=== PATIENT | male | born 1960 | race Caucasian/White ===

== ENCOUNTER 2016-10-31 16:31 | Emergency (ER) | payer OTHER ==
[2016-10-31 16:45] VITALS: RESP 16; O2SAT 95
--- NOTE | 2016-10-31 17:12 | EDPHY ---
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 He complains of increasing pain and swelling to the dorsum of his left foot with limited range of motion to his toes secondary to swelling. He has been treating his injury with Ibuprofen, rest, elevation, and ice without significant improvement to his complaints. He denies any additional injuries. He has a remote history of left ankle fracture and left toe fracture. REVIEW OF SYSTEMS: A ten point review of systems was performed and is negative with the exception of the items mentioned in the HPI. Source: Patient Exam Limitations: No limitations - Medical/Surgical History PMH: 1. Chronic neck pain (oxycodone PRN) 2. Hip pain (oxycodone PRN) 3. Hypertension 4. Left ankle fracture 5. Left toe fracture Hx Asthma: No Hx Chronic Respiratory Disease: No Hx Diabetes: No Hx Cardiac Disease: No Hx Renal Disease: No Hx Cirrhosis: No Hx Alcoholism: No Hx HIV/AIDS: No Hx Splenectomy or Spleen Trauma: No Other PMH: fx collarbone,fx ribs,knee surgery. kidney stones, lipsotrypsy, bowel obstruction. 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 at bedside. Works as cabinetmaker. - Physical Exam Exam: General Appearance: Alert. Vital signs reviewed. Focused exam was performed. BP 146/103. Respiratory: Lungs are clear to auscultation; no wheezes, rales, or rhonchi. Cardiovascular: Regular rate and rhythm; no murmur, rub, or gallop. Gastrointestinal: Abdomen is soft and nontender. Skin: Warm and dry, no rashes on exposed skin, normal color. No bruising. Extremities: Tenderness to the distal first metatarsal, tenderness over the fourth and fifth metatarsals. No significant swelling or warmth. Able to flex/ ext left ankle, wiggle left toes. Pulses: 2+ dorsalis pedis pulses on the left. Neurological: Alert and oriented. Moving all four extremities easily and equally. Sensation intact over left foot. Psychiatric: Normal affect. Constitutional: Initial Vital Signs Temperature (C) 37.2 C 10/31/16 16:41 Heart Rate 98 10/31/16 16:41 Respiratory Rate 16 10/31/16 16:41 Blood Pressure 146/103 H 10/31/16 16:41 O2 Sat (%) 95 10/31/16 16:41 O2 Delivery Mode Room Air Allergies/Adverse Reactions: No Known Allergies Allergy (Verified 10/31/16 16:40) Home Medications: Medication Instructions Recorded Lisinopril [Zestril 10 mg (*)] 08/30/14 Pravastatin Sodium [Pravachol] 08/30/14 Bp Med 10/31/16 Medical Decision Making - Diagnostics Imaging Results: Imaging Impressions Foot X-Ray 10/31/16 16:54 Impression: 1. No acute fracture identified. 2. Probable old fracture of the shaft of the proximal phalanx of the fourth toe. 3. Additional findings as above. Findings discussed with Deanna Hodges today at 1725 hours. ED Course/Re-evaluation: 56-year-old male presents with left foot injury secondary to attempting to kick a piece of wood off of his desk at 1000. He has no additional injuries. He has tenderness over the first, fourth, and fifth metatarsal on exam. Sensation is in tact. Will proceed with x-ray of the left foot. 2 tabs PO Percocet administered for pain. 1726: X-ray results reported to me by Dr. Riddle, radiologist.. I discussed imaging results with the patient. He will be given a post-op shoe to wear while his pain persists and an orthopedic referral for follow-up if needed. He will be discharged home in good condition. He has a set of crutches that he borrowed. He will continue with ice and elevation. He has oxycodone that he uses for his chronic neck pain and he will keep continue this and all of his prescribed medications. He was hypertensive in the emergency department. He has a history of hypertension and is compliant with his medications. Will follow up with his primary care provider. Differential Diagnosis: I considered a differential diagnosis that includes but is not limited to fracture, dislocation, sprain, strain, abrasion, and contusion. - Data Points Medications Given: Discontinued Medications Oxycodone/Acetaminophen (Percocet 5/325) 2 tab PO EDNOW ONE Stop: 10/31/16 17:23 Last Admin: 10/31/16 17:26 Dose: 2 tab Departure - Departure Disposition: Home, Routine, Self-Care Clinical Impression: Contusion of left foot Qualifiers: Encounter type: initial encounter Qualified Code(s): S90.32XA - Contusion of left foot, initial encounter Condition: Good Instructions: Crutch Instructions (ED), Foot Contusion (ED) Additional Instructions: 1. Continue to rest, ice, and elevate your foot. Use your post-op shoe and crutches as needed in order to tolerate weight bearing on your left foot. 2. Alternate 600mg Ibuprofen and 650mg Tylenol every 6 hours as needed for pain and inflammation. 3. Use your oxycodone as prescribed as needed for severe pain. 4. Return to the Emergency Department if you experience uncontrollable swelling or pain, changes in sensation to your foot or toes, or for other serious concerns. Referrals: Adolfo Mi MD [Primary Care Provider] - As per Instructions Stand Alone Forms: Work Excuse Report Scribed for: Deanna Hodges Report Scribed by: Keyana Terry Date of Report: 10/31/16 Time of Report: 17:18 Physician Review and Approval Statement: 10/31/16 17:12 Portions of this note were transcribed by the medical radiation tech. I, Dr. Deanna Hodges, personally performed the history, physical exam, and medical decision- making; and confirmed the accuracy of the information in the transcribed note.
[2016-10-31] MEDS ORDERED: OXYCODONE/APAP 5/325 TAB PO ONE (17:22)
[2016-10-31 17:46] VITALS: BP 158/106; PULSE 90; TEMP 98.6
== END 2016-10-31 17:46 | disposition home or self-care (01) ==
LOC: CED 16:31
DX: S90.32XA Contusion of left foot, initial encounter (principal); I10 Essential (primary) hypertension; F17.200 Nicotine dependence, unspecified, uncomplicated; W22.8XXA Striking against or struck by other objects, initial encounter
CPT/HCPCS: 73630-PO